=== PATIENT | male | born 1985 | race Caucasian/White ===

== ENCOUNTER → 2020-11-08 | Outpatient (CLI) | payer BC ==
--- NOTE | 2020-11-08 13:30 | Diagnostic Imaging Report ---
CLINICAL INDICATION: Patient with chronic sinus problems since 2014. EXAM: Axial CT scan of the maxillofacial structures without IV contrast . Coronal and sagittal reformations were performed. Auto Exposure Controls were utilized during the CT exam to meet ALARA standards for radiation dose reduction. COMPARISON: None. FINDINGS: PARANASAL SINUSES: FRONTAL: Unremarkable. ETHMOID: Unremarkable. MAXILLARY: There is [id number] mucosal thickening involving right maxillary sinus. There is very minimal mucosal thickening involving the medial aspect of left maxillary sinus. SPHENOID: Unremarkable. OTHER PARANASAL SINUS FINDINGS: The ostiomeatal unit regions are patent. NASAL SEPTUM: Slightly tortuous nasal septum is seen. VISUALIZED TEMPORAL BONE STRUCTURES: Unremarkable. BONY STRUCTURES: Unremarkable. EXTRACRANIAL SOFT TISSUE/ ORBITS: Unremarkable. IMPRESSION: 1: There is bilateral maxillary sinus disease (right side more than the left). 2: Slightly tortuous nasal septum is seen. Dictated by: Dictated on workstation # [id number]
== END ==
LOC: RAD FS 12:45
PROVIDERS: ATTEND Nurse Practitioner Family
DX: J32.0 Chronic maxillary sinusitis (principal); J34.2 Deviated nasal septum
CPT/HCPCS: 70486

== ENCOUNTER 2020-12-22 11:50 | Outpatient (CLI) | payer BC ==
[~2020-12-22] VITALS: Ht 182.9 cm; Wt 138.6 kg
[2020-12-22] MEDS ORDERED: HYDR25TA4 PO (12:56)
[2020-12-22] MEDS ORDERED: MULT-1102 PO (12:56)
[2020-12-22] MEDS ORDERED: AMPH30TA2 PO (12:56)
== END 2020-12-22 13:05 | disposition home or self-care (01) ==
LOC: PREOP 11:50
PROVIDERS: ATTEND Otolaryngology Otolaryngology/Facial Plastic Surgery
DX: Z01.818 Encounter for other preprocedural examination (principal)

== ENCOUNTER 2020-12-24 07:34 | Day surgery (SDC) | payer BC ==
[2020-12-24] VITALS (11 sets, daily range): BP systolic 98–143; BP diastolic 6–94
[~2020-12-24] VITALS: Ht 182.9 cm; Wt 138.6 kg
[~2020-12-24 07:34] MED LIST: AMPH30TA2 PO; HYDR25TA4 PO; MULT-1102 PO
[2020-12-24] MEDS ORDERED: AMPICILLIN/SULBACTAM 1.5 GM/NS 100 ML IVPB IV ONE ×2 (08:00)
[2020-12-24] MEDS ORDERED: HYDROCORTISONE 100 MG/2 ML (Solu-CORTEF) VIAL IV NR (08:00)
[2020-12-24] MEDS ORDERED: COCAINE HCL 4% 2 ML SYR ONE (08:08)
[2020-12-24] MEDS ORDERED: PHENYLEPHRINE 0.5% NASAL SPR (NEO-SYNEPHRINE) REG ONE (08:09)
[2020-12-24] MEDS ORDERED: LIDOCAINE/EPI 1%-1:100,000 (XYLOCAINE) 20ML ONE (08:09)
[2020-12-24] MEDS ORDERED: BSS 15 ML ONE (08:09)
[2020-12-24 08:11] LABS: BASOPHILS % (AUTO) 0 % (0-10); EOSINOPHILS # (AUTO) 0.2 10^3/uL (0.0-0.3); EOSINOPHILS % (AUTO) 3 % (0-10); HEMATOCRIT 49 % (40-54); LYMPHOCYTES # (AUTO) 2.3 10^3/uL (1.0-4.0); LYMPHOCYTES % (AUTO) 42 % (12-44); MEAN CORPUSCULAR HEMOGLOBIN 28 pg (25-34); MEAN CORPUSCULAR HGB CONC 33 g/dL (32-36); MEAN CORPUSCULAR VOLUME 84 fL (80-99); MEAN PLATELET VOLUME 10.1 fL (9.0-12.2); MONOCYTES # (AUTO) 0.6 10^3/uL (0.0-1.0); MONOCYTES % (AUTO) 11 % (0-12); NEUTROPHILS # (AUTO) 2.4 10^3/uL (1.8-7.8); NEUTROPHILS % (AUTO) 44 % (42-75); PLATELET COUNT 204 10^3/uL (130-400); WHITE BLOOD COUNT 5.4 10^3/uL (4.3-11.0)
[2020-12-24] MEDS ORDERED: ROCURONIUM 10 MG/ML 5 ML SYRINGE IV ONE (08:13)
[2020-12-24] MEDS ORDERED: proPOfol 200 MG/20 ML (DIPRIVAN) VIAL IV ONE (08:13)
[2020-12-24] MEDS ORDERED: MIDAZOLAM 2 MG/2 ML (VERSED) VIAL ONE (08:13)
[2020-12-24] MEDS ORDERED: ONDANSETRON 4 MG/2 ML (SDV) Z0FRAN ONE (08:13)
[2020-12-24] MEDS ORDERED: LIDOCAINE PF 2% 5 ML (XYLOCAINE) VIAL ONE (08:13)
[2020-12-24] MEDS ORDERED: fentaNYL INJ 100 MCG/2 ML AMP ONE (08:13)
[2020-12-24] MEDS ORDERED: NEOSTIGMINE 3 MG/3 ML VIAL ONE (08:14)
[2020-12-24] MEDS ORDERED: GLYCOPYRROLATE 0.2 MG/ML (ROBINUL) 2 ML VIAL ONE (08:14)
[2020-12-24] MEDS ORDERED: SEVOFLURANE (ULTANE) 15 ML INHAL SOLN ONE ×3 (08:14→09:40)
[2020-12-24 08:21] LABS: CHLORIDE 106 MMOL/L (98-107); SODIUM 140 MMOL/L (135-145)
[2020-12-24 08:23] LABS: GLUCOSE 88 MG/DL (70-105)
[2020-12-24 08:24] LABS: CARBON DIOXIDE 25 MMOL/L (21-32)
[2020-12-24 08:26] LABS: CREATININE SERUM 1.07 MG/DL (0.60-1.30); GFR ESTIMATED > 60
[2020-12-24 08:27] LABS: BUN/CREATININE RATIO 13
[2020-12-24] MEDS: LACTATED RINGERS 1,000 ML IV PRN ×2 (08:29→09:37)
[2020-12-24] MEDS ORDERED: AMPICILLIN/SULBACTAM INJECTION 1.5 GM in NS (IVPB) 100 ML IV ONE (08:30)
[2020-12-24] MEDS ORDERED: HYDROCORTISONE 100 MG/2 ML (Solu-CORTEF) VIAL IV ONE (08:30)
--- NOTE | 2020-12-24 08:49 | Progress Note-Pre Operative ---
Pre-Operative Progress Note H&P Reviewed The H&P was reviewed, patient examined and no changes noted. Date Seen by Provider: Dec 24, 2020 Time Seen by Provider: 08:20 Date H&P Reviewed: Dec 24, 2020 Time H&P Reviewed: 08:20 Pre-Operative Diagnosis: Bilat Chronic Sinusitis, Bilat Hyper of INf Turbinates with Nasl congestion BRANDY BETH MD Dec 24, 2020 08:49
[2020-12-24] MEDS ORDERED: HYDROmorphone 2 MG/ML VIAL (DILAUDID) IV ONE (09:30)
[2020-12-24] MEDS ORDERED: morphine INJ 10 MG/ML 1ML (SYR OR VIAL) IVP ONE (09:30)
[2020-12-24] MEDS ORDERED: ONDANSETRON 4 MG/2 ML (SDV) Z0FRAN IVP PRN (09:30)
--- NOTE | 2020-12-24 10:04 | Progress Note-Post Operative ---
Post-Operative Progess Note Surgeon (s)/[employer] Worker (s) Surgeon BRANDY BETH MD [employer] n/a Pre-Operative Diagnosis Bilat Chronic Sinusitis, Bilat Hyper of INf Turbinates with Nasl congestion Post-Operative Diagnosis same Post-Op Procedure Note Date of Procedure: Dec 24, 2020 Name of Procedure Performed: Bilat ESS, Bilat Red of Inf Turbs Description & Findings Description and Findings: n/a Anesthesia Type get Estimated Blood Loss minimal Packing none. Specimen(s) collected/removed bilat chronic sinusitis BRANDY BETH MD Dec 24, 2020 10:04
[2020-12-24] MEDS ORDERED: ACETAMINOPHEN 325 MG TABLET PO PRN (10:15)
[2020-12-24] MEDS ORDERED: HYDROcodone/APAP 5 MG/325 MG (LORTAB) TAB PO PRN (10:15)
[2020-12-24] MEDS ORDERED: D5 1/2 NS W/KCL 20 MEQ/L 1,000 ML IV SCH (10:15)
[2020-12-24] MEDS ORDERED: PROMETHAZINE INJ 25 MG/ML (PHENERGAN) AMP IVP PRN (10:15)
[2020-12-24] MEDS ORDERED: predniSONE 20 MG TAB PO NR (10:15)
[2020-12-24] MEDS ORDERED: AMOX-355 PO (11:46)
[2020-12-24] MEDS ORDERED: PRD20T PO (11:46)
[2020-12-24] MEDS ORDERED: ACHD5005 PO (11:46)
--- NOTE | 2020-12-24 14:32 | Anesthesia-General Post-Op ---
General Patient Condition Mental Status/LOC: Same as Preop Cardiovascular: Satisfactory Nausea/Vomiting: Absent Respiratory: Satisfactory Pain: Controlled Complications: Absent Post Op Complications Complications None Follow Up Care/Instructions Patient Instructions None needed. Anesthesia/Patient Condition Patient Condition Patient was seen this morning after the procedure and he was doing well, no complaints, stable vital signs, no apparent adverse anesthesia problems. CIRO BARRAGAN 26, 2021 14:31
== END 2020-12-24 12:40 | disposition home or self-care (01) ==
LOC: SDC 07:34
PROVIDERS: ATTEND Otolaryngology Otolaryngology/Facial Plastic Surgery
DX: J32.8 Other chronic sinusitis (principal); J34.3 Hypertrophy of nasal turbinates; R09.81 Nasal congestion; I10 Essential (primary) hypertension; G47.33 Obstructive sleep apnea (adult) (pediatric); F90.9 Attention-deficit hyperactivity disorder, unspecified type; E66.01 Morbid (severe) obesity due to excess calories; Z68.41 Body mass index [BMI] 40.0-44.9, adult; Z79.899 Other long term (current) drug therapy; Z20.822 Contact with and (suspected) exposure to COVID-19
CPT/HCPCS: 30140; 31255; 31295; 80048; 85025; 87081; 88305; U0002; 36415; 87635

== ENCOUNTER → 2021-06-02 | Outpatient (CLI) | payer SELFPAY ==
[~2021-06-02] MED LIST changes: +ACHD5005 PO; +AMOX-355 PO; +PRD20T PO
--- NOTE | 2021-06-02 11:13 | Diagnostic Imaging Report ---
Indication: Coronary calcium scoring study, hypertension and hypercholesterolemia CT cardiac calcium scoring study performed with noncontrast images of the cardiac silhouette with calculation of cardiac calcium score. Dose reduction protocol was used. The aorta is normal in caliber. The mediastinum shows no overt adenopathy. Visualized portions of the lung parenchyma show no focal infiltrates or nodules. The entirety of the lung parenchyma is not seen. Incidental note is made of fatty infiltration of the liver. No significant coronary calcium is seen. Calculated cardiac calcium score was 0. IMPRESSION: CT cardiac calcium score is 0, no significant coronary calcification seen. Dictated by: Dictated on workstation # [id number]
== END ==
LOC: RAD FS 09:52
PROVIDERS: ATTEND Nurse Practitioner Family
DX: E78.00 Pure hypercholesterolemia, unspecified (principal); I10 Essential (primary) hypertension
CPT/HCPCS: 75571